=== PATIENT | female | born 1970 | race Caucasian/White ===

== ENCOUNTER 2024-01-16 23:00 | Emergency (ER) | payer OTHER ==
[~2024-01-16 23:00] MED LIST: Iopamidol-370 76% 500 ML MDV (1 ML CHARGE) ONE
[2024-01-16] MEDS ORDERED: fentaNYL 50 mcg/mL 1 mL Vial ONE (23:09)
[2024-01-16 23:29] LABS: #Basophils 0.1 thou/uL (0.0-0.2); #Monocytes 0.3 thou/uL (0.11-0.59); #Neutrophils 18.7 thou/uL (1.40-6.50); %Basophils 0.5 % (0.0-1.0); %Eosinophils 0.2 % (0.0-10.0); %Lymphocytes 6.1 % (21.0-51.0); %Monocytes 1.5 % (0.0-10.0); %Neutrophils 88.7 % (42.0-75.0); Hematocrit 43.8 % (36.0-47.0); Mean Corpuscular Volume 103.3 fl (78.0-98.0); Mean Platelet Volume 10.4 fL (7.4-10.4); Platelet Count 196 10x3/uL (130-400); RBC Distribution Width 13.3 % (11.5-14.5); Red Blood Cell (RBC) Count 4.24 mill/uL (4.20-5.40)
[2024-01-16] MEDS ORDERED: Lidocaine 1% (PF) 30 ML VIAL ONE (23:42)
[2024-01-16 23:43] LABS: PTT 26.6 sec (22.9-36.1); Prothrombin Time 13.5 sec (12.0-14.7)
[2024-01-16 23:47] LABS: ALT (SGPT) 138 U/L (8-55); AST (SGOT) 231 U/L (5-34); Acetaminophen Less than 10 mcg/mL (10.0-30.0); Albumin 3.4 g/dL (3.5-5.0); Alcohol Less than 10.0 mg/dL (Less than 10); Alkaline Phosphatase 82 U/L (40-110); Anion Gap 17 mmol/L (10-20); BUN (Urea Nitrogen) 8 mg/dL (9.8-20.1); Bilirubin, Total 0.2 mg/dL (0.2-1.2); Calc. Creatinine Clearance 0 mL/min (70-130); Calcium 7.7 mg/dL (7.8-10.44); Carbon Dioxide 15 mmol/L (22-29); Chloride 109 mmol/L (98-107); Estimated GFR 74; Glucose 151 mg/dL (70-105); Magnesium 1.9 mg/dL (1.6-2.6); Phosphorus 4.1 mg/dL (2.3-4.7); Potassium 3.5 mmol/L (3.5-5.1); Protein, Total 6.4 g/dL (6.0-8.3); Salicylate Less than 8.0 mg/dL (15.0-30.0); Sodium 137 mmol/L (136-145)
[2024-01-16 23:48] LABS: Amphetamine Not Detected (NotDetected); Barbiturates Screen Not Detected (NotDetected); Benzodiazepine Screen Not Detected (NotDetected); Cocaine Metabolite Screen Not Detected (NotDetected); Methadone Not Detected (NotDetected); Methamphetamine Not Detected (NotDetected); Opiate Screen Not Detected (NotDetected); Oxycodone Screen Not Detected (NotDetected); Phencyclidine (PCP) Not Detected (NotDetected); THC/Cannabinoid Screen Not Detected (NotDetected); Tricyclic Screen Not Detected (NotDetected)
[2024-01-16 23:52] LABS: Bacteria/HPF 4+ HPF (None Seen); Bilirubin Negative (Negative); Blood, Urine 3+ (Negative); CAUTI Indications for Culture Pelvic or flank pain; Clarity Turbid (Clear); Glucose, Urine (Dipstick) Normal (Negative); Ketone, Urine Negative (Negative); Leukocyte 250 Leu/uL (Negative); Nitrite Negative (Negative); Protein, Urine (Dipstick) 100 mg/dL (Neg-Trace); RBC/HPF Greater than 50 HPF (0-3); Specific Gravity, Urine 1.016 (1.002-1.036); Urobilinogen Normal mg/dL (Less than 2); WBC/HPF 21-50 HPF (0-3)
[2024-01-16 23:53] LABS: Urine Culture Reflex Yes Yes
[2024-01-17] MEDS ORDERED: cefTRIAXone (ROCEPHIN) 2 GM VIAL ONE (00:03)
[2024-01-17] MEDS ORDERED: Boostrix 0.5 ML (Tdap) VIAL (>/=7 yrs of age) ONE (00:03)
[2024-01-17] MEDS ORDERED: Sodium Chloride 0.9% 0 ML ONE (00:03)
[2024-01-17 00:19] LABS: Troponin I 0.071 ng/mL (< 0.028)
[2024-01-17] MEDS ORDERED: fentaNYL 50 mcg/mL 1 mL Vial ONE ×2 (00:23→02:33)
[2024-01-17] MEDS ORDERED: traMADol HCl 50 MG TAB PO PRN (01:01)
[2024-01-17] MEDS ORDERED: Morphine 2 MG/ML VIAL SLOW IVP PRN (01:01)
[2024-01-17] MEDS ORDERED: Cyclobenzaprine 10 MG TAB PO PRN (01:02)
[2024-01-17] MEDS ORDERED: Ketorolac Tromethamine 30 MG (1 mL) VIAL IVP SCH ×2 (01:15→06:00)
[2024-01-17] MEDS ORDERED: Lactated Ringer's 1,000 ML IV SCH (01:15)
[2024-01-17] MEDS ORDERED: Acetaminophen 500 MG TAB PO SCH (01:15)
[2024-01-17 02:55] LABS: Lactic Acid 2.7 mmol/L (0.5-2.2)
[2024-01-17] MEDS ORDERED: traMADol HCl 50 MG TAB PO SCH (06:00)
[2024-01-17] MEDS ORDERED: Senokot S 8.6-50 MG TAB PO SCH (09:00)
[2024-01-17] MEDS ORDERED: Polyethylene Glycol 3350 17 GM Packet PO SCH (09:00)
== END 2024-01-17 03:08 | disposition short-term general hospital (02) ==
LOC: ERS 23:00
DX: S01.01XA Laceration without foreign body of scalp, initial encounter (principal); S22.43XA Multiple fractures of ribs, bilateral, initial encounter for closed fracture; S32.059A Unspecified fracture of fifth lumbar vertebra, initial encounter for closed fracture; S32.811A Multiple fractures of pelvis with unstable disruption of pelvic ring, initial encounter for closed fracture; S42.351A Displaced comminuted fracture of shaft of humerus, right arm, initial encounter for closed fracture; J93.9 Pneumothorax, unspecified; V49.88XA Car occupant (driver) (passenger) injured in other specified transport accidents, initial encounter
CPT/HCPCS: 36430; 70450; 71045; 71260; 72125; 72170; 73070; 73110; 74177; 80053; 80306; 80307; 81001; 83605; 83735; 84100; 84484; 85025; 85610; 85730; 86850; 86900; 86901; 86920; 87086; 90715; 93005; J3010 ×2; P9016; 24576; 36415; 51702; 90471; 96374; 96376; G0390; J0696; J2001; J3490; Q9967

== ENCOUNTER 2024-09-25 18:50 | Emergency (ER) | payer MEDICARE ==
[2024-09-25 19:57] LABS: #Basophils 0.09 10x3/uL (0.0-0.2); %Basophils 1.1 % (0.0-1.0); %Eosinophils 1.7 % (0.0-10.0); %Lymphocytes 32.2 % (21.0-51.0); %Monocytes 6.3 % (0.0-10.0); %Neutrophils 58.3 % (42.0-75.0); Hematocrit 46.1 % (36.0-47.0); Hemoglobin 15.2 g/dL (12.0-16.0); Mean Corpuscular Hemoglobin 33.1 pg (27.0-31.0); Mean Corpuscular Volume 100.4 fL (78.0-98.0); Mean Platelet Volume 9.8 fL (7.4-10.4); Platelet Count 266 10x3/uL (130-400); RBC Distribution Width 12.5 % (11.5-14.5); Red Blood Cell (RBC) Count 4.59 mill/uL (4.20-5.40)
[2024-09-25 20:14] LABS: ALT (SGPT) 6 U/L (8-55); AST (SGOT) 19 U/L (5-34); Acetaminophen Less than 10 mcg/mL (Less than 10); Albumin 3.7 g/dL (3.5-5.0); Alcohol 161.4 mg/dL (Less than 10); Alkaline Phosphatase 93 U/L (40-110); Anion Gap 15 mmol/L (10-20); BUN (Urea Nitrogen) 8 mg/dL (9.8-20.1); Bilirubin, Total 0.2 mg/dL (0.2-1.2); CK (CPK) 52 U/L (29-168); Calc. Creatinine Clearance 0 mL/min (70-130); Calcium 8.7 mg/dL (7.8-10.44); Carbon Dioxide 20 mmol/L (22-29); Chloride 114 mmol/L (98-107); Estimated GFR 99; Globulin 3.2 g/dL (2.4-3.5); Glucose 86 mg/dL (70-105); Potassium 3.6 mmol/L (3.5-5.1); Protein, Total 6.9 g/dL (6.0-8.3); Salicylate Less than 8.0 mg/dL (Less than 8.0); Sodium 145 mmol/L (136-145)
[2024-09-25 20:17] LABS: BHCG - Serum Negative (NEGATIVE); Pregs Control Background? CLEAR/WHITE (CLR/WHITE); Pregs Control Bar Appear? YES (CONTROL BAR)
[2024-09-25 23:16] LABS: Bilirubin Negative (Negative); Blood, Urine Trace (Negative); CAUTI Indications for Culture Alt mental st,lethar; Clarity Clear (Clear); Glucose, Urine (Dipstick) Normal (Negative); Ketone, Urine Negative (Negative); Leukocyte Negative Leu/uL (Negative); Nitrite Negative (Negative); Protein, Urine (Dipstick) Negative (Neg-Trace); RBC/HPF 0-3 HPF (0-3); Squamous Epithelial 0-3 HPF (0-3); Urobilinogen Normal mg/dL (Less than 2); WBC/HPF 0-3 HPF (0-3); pH, Urine 5.5 (5.0-9.0)
[2024-09-25 23:17] LABS: Bacteria/HPF 1+ HPF (None Seen); Specific Gravity, Urine 1.005 (1.002-1.036)
[2024-09-25 23:18] LABS: Urine Culture Reflex No No
[2024-09-25 23:21] LABS: Amphetamine Not Detected (NotDetected); Barbiturates Screen Not Detected (NotDetected); Benzodiazepine Screen Not Detected (NotDetected); Cocaine Metabolite Screen Not Detected (NotDetected); Methadone Not Detected (NotDetected); Methamphetamine Not Detected (NotDetected); Opiate Screen Detected (NotDetected); Oxycodone Screen Not Detected (NotDetected); Phencyclidine (PCP) Not Detected (NotDetected); THC/Cannabinoid Screen Not Detected (NotDetected); Tricyclic Screen Not Detected (NotDetected)
[2024-09-26] MEDS ORDERED: Apixaban 5 MG TAB ONE (08:51)
[2024-09-26] MEDS ORDERED: Apixaban 5 MG TAB PO SCH (09:00)
== END 2024-09-26 16:15 | disposition home or self-care (01) ==
LOC: ERS 18:50
DX: T40.2X2A Poisoning by other opioids, intentional self-harm, initial encounter (principal); T42.4X2A Poisoning by benzodiazepines, intentional self-harm, initial encounter; F17.210 Nicotine dependence, cigarettes, uncomplicated; Z55.0 Illiteracy and low-level literacy
CPT/HCPCS: 36415; 71045; 80053; 80306; 80307; 81001; 82550; 84443; 84703; 85025; 93005